=== PATIENT | female | born 1960 | race Caucasian/White ===

== ENCOUNTER 2016-09-23 19:04 | Emergency (ER) | payer BC ==
--- NOTE | 2016-09-23 19:09 | UCPHY ---
H & P Patient Type: New HPI/ROS: HPI CHIEF COMPLAINT: Right elbow pain HISTORY OF PRESENT ILLNESS: This patient is a 56-year-old female presents to the urgent care with right elbow pain atraumatic. Patient states for the approximately 3 weeks. She tells me it is an achy pain is worse when she rests her elbow on a hard surface. She denies direct trauma. She came to the urgent care requesting an x-ray to make sure there is not a fracture. She does have full range of motion she is distally neurovascularly intact. Does not remember any trauma her elbow. Does have tenderness down the extensor tendon region. Past Medical History: Bipolar disorder Past Surgical History: denies recent or pertinent surgical history Social History: Denies daily use of drugs alcohol tobacco products Family History: Noncontributory ROS REVIEW OF SYSTEMS: A comprehensive 10 point review of systems is otherwise negative aside from elements mentioned in the history of present illness. Exam Constitutional triage nursing summary reviewed, vital signs reviewed, awake/ alert. Eyes normal conjunctivae and sclera, EOMI, PERRLA. HENT normal inspection, atraumatic, moist mucus membranes, no epistaxis, neck supple/ no meningismus, no raccoon eyes. Respiratory clear to auscultation bilaterally, normal breath sounds, no respiratory distress, no wheezing. Cardiovascular rate normal, regular rhythm, no murmur, no edema, distal pulses normal. Gastrointestinal soft, non-tender, no rebound, no guarding, normal bowel sounds, no distension, no pulsatile mass. Genitourinary no CVA tenderness. Musculoskeletal right elbow: Elbows neurovascularly intact full range of motion, distally good cap refill, good pulse. She is tender palpation down the extensor tendon region, tender palpation over the olecranon, full range of motion, no clicking, no crepitus, no warmth, no obvious joint effusion, no erythema, no evidence of cellulitis or abscess, no midline vertebral tenderness , full range of motion, no calf swelling, no tenderness of extremities, no meningismus, good pulses, neurovascularly intact. Skin pink, warm, & dry, no rash, skin atraumatic. Neurologic awake, alert and oriented x 3, AAOx3, moves all 4 extremities equally, motor intact, sensory intact, CN II-XII intact, normal cerebellar, normal vision, normal speech. Psychiatric normal mood/affect. Heme/Lymph/Immune no lymphadenopathy. Differential Diagnosis: Includes but is not limited to in a particular, tennis elbow, tendinitis, musculoskeletal strain, bony contusion, fracture Medical Decision Making: patient had an x-ray of the elbow to rule out acute bony abnormality. Re-evaluation: ED x-ray right elbow three view: Source: Patient - Medical/Surgical History Hx Asthma: No Hx Chronic Respiratory Disease: No Hx Diabetes: No Hx Cardiac Disease: No Hx Renal Disease: No Hx Cirrhosis: No Hx Alcoholism: No Hx HIV/AIDS: No Hx Splenectomy or Spleen Trauma: No Other PMH: [email or web address] - Family History Significant Family History: No pertinent family hx Constitutional: Initial Vital Signs Temperature (C) 36.5 C 09/23/16 19:10 Heart Rate 81 09/23/16 19:10 Respiratory Rate 16 09/23/16 19:10 Blood Pressure 122/84 H 09/23/16 19:10 O2 Sat (%) 98 09/23/16 19:10 O2 Delivery Mode Room Air Allergies/Adverse Reactions: No Known Allergies Allergy (Verified 09/23/16 19:06) Home Medications: Medication Instructions Recorded Depakote 08/02/13 Deplin 08/02/13 Lamictal 08/02/13 SEROQUEL 08/02/13 Ibuprofen [Motrin (*)] 800 mg PO Q6-8PRN #10 tab 09/23/16 Departure - Departure Disposition: Home, Routine, Self-Care Clinical Impression: Elbow tendonitis Condition: Good Instructions: Arthralgia (ED), Tendinitis (ED) Additional Instructions: 1. I recommend that you get a tight band put over your forearm to help tendinitis 2. I also recommend that you take anti-inflammatory pain medicine Tylenol or ibuprofen for anti-inflammatory control. 3. You should ice her elbow. 4.You should limit repetitive range of motion. You should range it slowly. Do not keep in a locked position. Referrals: Tram Wade [Primary Care Provider] - As per Instructions Moreno Lu MD [Medical Doctor] - As per Instructions Prescriptions: Ibuprofen [Motrin (*)] 800 mg PO Q6-8PRN #10 tab - PQRS PQRS Measurement: n/a
[2016-09-23 19:20] VITALS: BP 122/84; PULSE 81; RESP 16; TEMP 97.7; O2SAT 98
== END 2016-09-23 20:30 | disposition home or self-care (01) ==
LOC: CED 19:04
DX: M77.8 Other enthesopathies, not elsewhere classified (principal); M25.521 Pain in right elbow
CPT/HCPCS: 73080-PO; G0463-PO

== ENCOUNTER → 2017-04-24 | Outpatient (CLI) | payer BC | LOC: CIMAGING 08:04 | PROVIDERS: ATTEND Family Medicine | DX: Z12.31 Encounter for screening mammogram for malignant neoplasm of breast (principal) | CPT/HCPCS: G0202 ==

== ENCOUNTER → 2017-11-30 | Outpatient (CLI) | payer BC | LOC: CIMAGING 12:34 | PROVIDERS: ATTEND Family Medicine | DX: S02.19XA Other fracture of base of skull, initial encounter for closed fracture (principal) | CPT/HCPCS: 70250-PO ==

== ENCOUNTER → 2017-12-03 | Outpatient (CLI) | payer BC | LOC: CIMAGING 08:33 | PROVIDERS: ATTEND Family Medicine | DX: R94.02 Abnormal brain scan (principal); S09.90XA Unspecified injury of head, initial encounter | CPT/HCPCS: 76536-PO ==

== ENCOUNTER → 2017-12-11 | Outpatient (CLI) | payer BC | LOC: CIMAGING 11:18 | PROVIDERS: ATTEND Family Medicine | DX: R26.89 Other abnormalities of gait and mobility (principal); R51 Headache | CPT/HCPCS: 70450-PO ==

== ENCOUNTER → 2018-07-01 | Outpatient (CLI) | payer BC | LOC: FIMAGING 09:39 | PROVIDERS: ATTEND Family Medicine | DX: Z12.31 Encounter for screening mammogram for malignant neoplasm of breast (principal); Z80.3 Family history of malignant neoplasm of breast ==

== ENCOUNTER → 2018-09-09 | Outpatient (CLI) | payer BC | LOC: CIMAGING 18:36 | PROVIDERS: ATTEND Family Medicine | DX: M24.812 Other specific joint derangements of left shoulder, not elsewhere classified (principal) | CPT/HCPCS: 73030-PO ==

== ENCOUNTER → 2018-11-06 | Outpatient (CLI) | payer BC | LOC: FIMAGING 11:56 | PROVIDERS: ATTEND Family Medicine | DX: M75.112 Incomplete rotator cuff tear or rupture of left shoulder, not specified as traumatic (principal); M75.22 Bicipital tendinitis, left shoulder; M25.612 Stiffness of left shoulder, not elsewhere classified; Z98.890 Other specified postprocedural states ==